=== PATIENT | female | born 1975 | race American Indian/Alaskan Native ===

== ENCOUNTER 2020-10-16 13:44 | Inpatient (IN) | payer OTHER ==
[2020-10-16] MEDS ORDERED: IPRATROPIUM/ALBUTEROL SULFATE 3 ML AMPUL.NEB IH ONE ×2 (14:01→14:12)
[2020-10-16] MEDS ORDERED: MAGNESIUM SULFATE 2 GM/50 ML BAG IV ONE (14:19)
[2020-10-16] MEDS ORDERED: methylPREDNISolone Sod Succinate 125 MG/2 ML INJ IV ONE (14:19)
--- NOTE | 2020-10-16 14:51 | XRay Report ---
XR chest 1V ap INDICATION / CLINICAL INFORMATION: Dyspnea. COMPARISON: None FINDINGS: SUPPORT DEVICES: None. HEART /PULMONARY VASCULATURE: No significant abnormality. LUNGS / PLEURA: No significant pulmonary or pleural abnormality. No pneumothorax. ADDITIONAL FINDINGS: No significant additional findings. IMPRESSION: 1. No acute findings. Signer Name: Saurav Cardenas MD Signed: 10/16/2020 2:47 PM Workstation Name: [id number]
--- NOTE | 2020-10-16 15:06 | Emergency Department Report ---
ED Shortness of Breath HPI - General Chief Complaint: Dyspnea/Respdistress Stated Complaint: ASTHMA Time Seen by Provider: 10/16/20 14:12 Source: patient Mode of arrival: Ambulatory Limitations: No Limitations - History of Present Illness Initial Comments: This is a 45-year old female who presents to the emergency department in respiratory distress. Charge nurse requested treatment for asthma which I authorized and immediately went to see the patient. Patient was found with audible wheezing. He had a limited ability to give a history. She was imm ediately started on multi DuoNeb aerosols. Her initial blood pressure was 172/109 on triage actually even higher on my encounter. She denied chest pain. She was able to tell me that she had been seen within the last week and given an albuterol inhaler prescription as well as an antibiotic. She stated that her elevated blood pressure was mentioned to her but she was not placed on medication yet. Patient was able to tell me she had no prior hospitalizations other than childbirth. She did state that she was on medicine for hypertension in the past but not recently as above. Patient stated that she did have some chills but no apparent fever. She states that she has been periodically sweating. She was noted to be mildly diaphoretic upon my initial encounter. She was not febrile. MD Complaint: shortness of breath, cough (States yellow sputum no hemoptysis), "asthma attack" -: week(s) Quality: other (States achy in general but no chest pain or back pain/abdominal pain) Consistency: constant (Dyspnea/wheezing is constant) Improves With: nothing Known History Of: asthma (Vague) Context: recent URI, other (No recent travel) Associated Symptoms: denies other symptoms, other (No leg pain. Patient stated a few weeks ago she felt a lump in her anterior thigh that went away) Treatments Prior to Arrival: other (Above indicated) - Related Data Home Oxygen Therapy: No Home Medications Medication Instructions Recorded Confirmed Last Taken Albuterol Sulfate [Proair 90 mcg IH PRN 10/16/20 10/16/20 Unknown Digihaler] Amoxicillin/Potassium Clav 1 each PO DAILY 10/16/20 10/16/20 Unknown [Augmentin 875-125 Tablet] Benzonatate [Tessalon Perles] 100 mg PO Q8HR PRN 10/16/20 10/16/20 Unknown Fluconazole [Diflucan TAB] 100 mg PO QDAY 10/16/20 10/16/20 Unknown Fluticasone [Flonase] 1 spray BN DAILY 10/16/20 10/16/20 Unknown Losartan/Hydrochlorothiazide 1 each PO DAILY 10/16/20 10/16/20 Unknown [Losartan-Hctz 50-12.5 mg Tab] Allergies Allergy/AdvReac Type Severity Reaction Status Date / Time No Known Allergies Allergy Unverified 10/16/20 13:49 ED Review of Systems ROS: Stated complaint: ASTHMA Other details as noted in HPI Comment: All other systems reviewed and negative (Limited secondary to respiratory distress) ED Past Medical Hx - Past Medical History Previous Medical History?: Yes Additional medical history: See HPI. Hypertension and I think previous prescription for bronchodilator. - Surgical History Past Surgical History?: Yes Additional Surgical History: TUBAL - Social History Smoking Status: Never Smoker Substance Use Type: Marijuana - Medications Home Medications: Home Medications Medication Instructions Recorded Confirmed Last Taken Type Albuterol Sulfate [Proair 90 mcg IH PRN 10/16/20 10/16/20 Unknown History Digihaler] Amoxicillin/Potassium Clav 1 each PO DAILY 10/16/20 10/16/20 Unknown History [Augmentin 875-125 Tablet] Benzonatate [Tessalon Perles] 100 mg PO Q8HR PRN 10/16/20 10/16/20 Unknown History Fluconazole [Diflucan TAB] 100 mg PO QDAY 10/16/20 10/16/20 Unknown History Fluticasone [Flonase] 1 spray BN DAILY 10/16/20 10/16/20 Unknown History Losartan/Hydrochlorothiazide 1 each PO DAILY 10/16/20 10/16/20 Unknown History [Losartan-Hctz 50-12.5 mg Tab] ED Physical Exam - General Limitations: Other (Respiratory distress) General appearance: obese, other (Sweaty) - Head Head exam: Present: atraumatic, normocephalic - Eye Eye exam: Absent: scleral icterus - ENT ENT exam: Present: mucous membranes moist - Neck Neck exam: Present: normal inspection. Absent: tenderness, meningismus - Respiratory Respiratory exam: Present: normal lung sounds bilaterally, accessory muscle use - Cardiovascular Cardiovascular Exam: Present: regular rate, normal rhythm. Absent: systolic murmur, diastolic murmur, rubs, gallop - GI/Abdominal GI/Abdominal exam: Absent: soft, distended, guarding - Extremities Exam Extremities exam: Present: other (Trace pretibial edema). Absent: calf tenderness - Back Exam Back exam: Present: normal inspection - Neurological Exam Neurological exam: Present: alert, oriented X3, CN II-XII intact (As tested). Absent: motor sensory deficit - Psychiatric Psychiatric exam: Present: normal affect, anxious - Skin Skin exam: Present: warm, dry, intact, normal color. Absent: rash ED Course Vital Signs 10/16/20 10/16/20 10/16/20 13:49 14:00 14:12 Temperature 98.3 F Pulse Rate 109 H Respiratory 38 H 24 Rate Blood Pressure 184/121 Blood Pressure [Left] O2 Sat by Pulse 100 100 99 Oximetry 10/16/20 10/16/20 10/16/20 14:14 14:15 14:31 Temperature Pulse Rate 95 H 86 Respiratory 22 24 Rate Blood Pressure 172/109 172/109 Blood Pressure 172/109 [Left] O2 Sat by Pulse 99 100 100 Oximetry 10/16/20 10/16/20 10/16/20 14:45 14:54 15:01 Temperature Pulse Rate 85 86 83 Respiratory 21 20 18 Rate Blood Pressure 172/109 164/100 164/100 Blood Pressure [Left] O2 Sat by Pulse 100 100 100 Oximetry 10/16/20 10/16/20 15:15 15:31 Temperature Pulse Rate 81 81 Respiratory 28 H 26 H Rate Blood Pressure 158/97 158/97 Blood Pressure [Left] O2 Sat by Pulse 100 100 Oximetry - Reevaluation(s) Reevaluation #1: Patient's blood pressure did improve but remained moderately hypertensive but not requiring acute reduction. She improved with nebulized therapy to some degree but remained quite anxious on reassessment. We placed the patient on BiPAP which alleviated her work of breathing. Solu-Medrol and mag sulfate as well as neb treatment did resolve the patient's wheezing. She remained stable on BiPAP with pulse oximetry essentially at 100%. 10/16/20 15:38 10/16/20 15:41 ABG is ordered and pending. Clinical status of the patient is improving. I have called [facility] for authorization of admission here. I would anticipate approval. Hospitalist will be notified. Patient had a D-dimer in the 400s. We are going to proceed with CT angiogram. Reevaluation #2: Discussed with Dr. Ly. Anticipated admission here. [facility] has not called back. 10/16/20 15:49 Reevaluation #3: Lactic acid level is 4. This will be repeated. I will give the patient antibiotic coverage. I certainly do not think she is septic. 10/16/20 15:52 ED Medical Decision Making - Lab Data Result diagrams: 10/16/20 14:56 10/16/20 14:56 Laboratory Results - last 24 hr 10/16/20 10/16/20 10/16/20 14:56 14:56 14:56 [place] % (Auto) 9.0 H Eos % (Auto) Grocery Clerk Checking Baso % (Auto) Grocery Clerk Checking [place] # (Auto) 0.4 Eos # (Auto) 0.4 Baso # (Auto) 0.0 Seg Neutrophils % 37.0 L Seg Neutrophils # 1.6 L PT 12.3 INR 0.93 APTT 23.9 L D-Dimer 494.04 H Lactic Acid 4.00 H* Laboratory Results - last 24 hr 10/16/20 10/16/20 10/16/20 14:42 14:56 14:56 WBC 4.3 L RBC 4.17 Hgb 13.3 Hct 39.1 MCV 94 MCH 32 MCHC 34 RDW 14.6 Plt Count 347 Lymph % (Auto) 43.2 H [place] % (Auto) 9.0 H Eos % (Auto) Grocery Clerk Checking Baso % (Auto) Grocery Clerk Checking Lymph # (Auto) 1.9 [place] # (Auto) 0.4 Eos # (Auto) 0.4 Baso # (Auto) 0.0 Seg Neutrophils % 37.0 L Seg Neutrophils # 1.6 L PT 12.3 INR 0.93 APTT 23.9 L D-Dimer 494.04 H Sodium Potassium Chloride Carbon Dioxide Anion Gap BUN Creatinine Estimated GFR BUN/Creatinine Ratio Glucose Lactic Acid Calcium Magnesium CK-MB (CK-2) 2.6 Troponin T Blood Type 10/16/20 10/16/20 10/16/20 14:56 14:56 14:56 WBC RBC Hgb Hct MCV MCH MCHC RDW Plt Count Lymph % (Auto) [place] % (Auto) Eos % (Auto) Baso % (Auto) Lymph # (Auto) [place] # (Auto) Eos # (Auto) Baso # (Auto) Seg Neutrophils % Seg Neutrophils # PT INR APTT D-Dimer Sodium 142 Potassium 3.5 L Chloride 103.2 Carbon Dioxide 21 L Anion Gap 21 BUN 8 Creatinine 0.9 Estimated GFR > 60 BUN/Creatinine Ratio 9 Glucose 97 Lactic Acid 4.00 H* Calcium 9.5 Magnesium 1.90 CK-MB (CK-2) Troponin T < 0.010 Blood Type O POSITIVE - EKG Data -: EKG Interpreted by Me EKG shows normal: sinus rhythm, axis, intervals, QRS complexes, ST-T waves Rate: normal - EKG Data Interpretation: no acute changes, other (Slightly delayed R wave progression probably secondary to habitus) - Radiology Data Radiology results: report reviewed (Chest x-ray no acute process), image reviewed Critical care attestation.: If time is entered above; I have spent that time in minutes in the direct care of this critically ill patient, excluding procedure time. ED Disposition Clinical Impression: Respiratory distress, Essential hypertension, Elevated d-dimer Status asthmaticus Qualifiers: Asthma severity: severe Asthma persistence: persistent Qualified Code(s): J45.52 - Severe persistent asthma with status asthmaticus Disposition: DC-09 OP ADMIT IP TO THIS HOSP Is pt being admited?: Yes Does the pt Need Aspirin: Yes Condition: Stable Instructions: Hypertension (ED) Time of Disposition: 15:44
[2020-10-16 15:23] LABS: INR 0.93 (0.87-1.13)
[2020-10-16 15:24] LABS: Partial Thromboplastin Time 23.9 Sec. (24.2-36.6)
[2020-10-16 15:32] LABS: Eosinophils # (Auto) 0.4 K/mm3 (0.0-0.4); Hematocrit 39.1 % (30.3-42.9); Hemoglobin 13.3 gm/dl (10.1-14.3); Lymphocytes # (Auto) 1.9 K/mm3 (1.2-5.4); Lymphocytes % (Auto) 43.2 % (13.4-35.0); Mean Corpuscular HGB Conc 34 % (30-34); Mean Corpuscular Volume 94 fl (79-97); Monocytes # (Auto) 0.4 K/mm3 (0.0-0.8); Platelet Count 347 K/mm3 (140-440); Red Blood Count 4.17 M/mm3 (3.65-5.03); Red Cell Distribution Width 14.6 % (13.2-15.2)
[2020-10-16] MEDS ORDERED: ASPIRIN 325 MG TAB PO ONE (15:44)
[2020-10-16 15:49] LABS: BUN/Creatinine Ratio 9; Blood Urea Nitrogen 8 mg/dL (7-17); Calcium 9.5 mg/dL (8.4-10.2); Hemolysis Index 0
[2020-10-16 15:51] LABS: Creatine Kinase MB 2.6 ng/mL (0.0-4.0)
[2020-10-16 16:06] LABS: Bilirubin,Urine NEG (Negative); Blood,Urine SM (Negative); Color,Urine Yellow (Yellow); Mucus,Urine 3+ /HPF; WBC,Urine < 1.0 /HPF (0.0-6.0)
[2020-10-16 16:11] LABS: Amphetamine Screen,Urine Negative; Benzodiazepines Screen,Urine Negative; Cocaine Screen,Urine Negative; Methadone Screen,Urine Negative; Opiate Screen,Urine Negative
[2020-10-16 16:16] LABS: HCG Qualitative,Urine Negative (Negative)
[2020-10-16] MEDS ORDERED: ALBUTEROL 2.5 MG/3 ML NEBU IH ONE (16:16)
[2020-10-16 16:28] LABS: Cannabinoid Screen,Urine Positive
[2020-10-16] MEDS ORDERED: ONDANSETRON 4 MG/2 ML INJ IV PRN (16:45)
[2020-10-16] MEDS ORDERED: ALBUTEROL 2.5 MG/3 ML NEBU IH PRN (16:45)
[2020-10-16] MEDS ORDERED: AZITHROMYCIN/NS 500 MG/250 ML 500 MG/250 ML BAG IV SCH (17:00)
--- NOTE | 2020-10-16 17:31 | History and Physical Report ---
History of Present Illness Date of admission: 10/16/20 16:45 Chief complaint: I cannot breathe History of present illness: 45 YO Female with Obesity Hypoventilation Syndrome, HTN, Mild Intermittent Asthma presents to ED for evaluation. Patient reports "I cannot breathe". Patient states that she has experienced shortness of breath over the past 5 days with acutely worsening symptoms over the past 1 day. Patient is unable to speak in complete sentences due to shortness of breath. Patient transported to [facility] via private vehicle for further care and evaluation of the aforementioned symp toms. The patient was seen and evaluated in the emergency department. All lab and imaging studies reviewed. Patient found to have a pulse oximetry of 88% on room air which is consistent with acute hypoxemic respiratory failure. The patient was sitting forward in bedtripoding, using accessory muscles to breathe. Patient was treated with submental oxygen without significant improvement in symptoms. The patient was subsequently placed on noninvasive positive pressure ventilation with mild improvement in symptoms. Patient found to have a lactic acidosis and was also initiated on coronavirus protocol in the emergency department. No further history obtainable due to patient symptoms. No prior admission for review. All medication listed at time of admission has been reconciled. Past History Past Medical History: hypertension, other (See HPI) Past Surgical History: Other (Tubal ligation) Social history: . denies: smoking, alcohol abuse Family history: diabetes, hypertension Medications and Allergies Allergies Allergy/AdvReac Type Severity Reaction Status Date / Time No Known Allergies Allergy Unverified 10/16/20 13:49 Home Medications Medication Instructions Recorded Confirmed Last Taken Type Albuterol Sulfate [Proair 90 mcg IH PRN 10/16/20 10/16/20 Unknown History Digihaler] Amoxicillin/Potassium Clav 1 each PO DAILY 10/16/20 10/16/20 Unknown History [Augmentin 875-125 Tablet] Benzonatate [Tessalon Perles] 100 mg PO Q8HR PRN 10/16/20 10/16/20 Unknown History Fluconazole [Diflucan TAB] 100 mg PO QDAY 10/16/20 10/16/20 Unknown History Fluticasone [Flonase] 1 spray BN DAILY 10/16/20 10/16/20 Unknown History Losartan/Hydrochlorothiazide 1 each PO DAILY 10/16/20 10/16/20 Unknown History [Losartan-Hctz 50-12.5 mg Tab] Active Meds: Active Medications Acetaminophen (Acetaminophen 325 Mg Tab) 650 mg PO Q4H PRN PRN Reason: Pain MILD(1-3)/Fever >100.5/[place] Albuterol (Albuterol 2.5 Mg/3 Ml Nebu) 2.5 mg IH Q4H PRN PRN Reason: Shortness Of Breath Ascorbic Acid (Ascorbic Acid 500 Mg Tab) 500 mg PO BID [facility] Benzonatate (Benzonatate 100 Mg Cap) 100 mg PO Q8H PRN PRN Reason: Cough Cholecalciferol (Cholecalciferol (Vit D3) 1000 Unit (25 Mcg) Tab) 1,000 unit PO DAILY [facility] Famotidine (Famotidine 10 Mg Tab) 10 mg PO BID [facility] Heparin Sodium (Porcine) (Heparin 5,000 Unit/1 Ml Vial) 5,000 unit SUB-Q Q12HR [facility] Hydrochlorothiazide (Hydrochlorothiazide 12.5 Mg Cap) 12.5 mg PO QDAY [facility] Ceftriaxone Sodium (Rocephin/Ns 2 Gm/100 Ml) 2 gm in 100 mls @ 200 mls/hr IV Q24H [facility]; Protocol Azithromycin (Zithromax/Ns) 500 mg in 250 mls @ 250 mls/hr IV Q24H [facility]; Protocol Losartan Potassium (Losartan 50 Mg Tab) 50 mg PO QDAY [facility] Methylprednisolone Sodium Succinate (Methylprednisolone Sod Succinate 40 Mg/1 Ml Inj) 40 mg IV Q8HR [facility] Ondansetron HCl (Ondansetron 4 Mg/2 Ml Inj) 4 mg IV Q8H PRN PRN Reason: Nausea And Vomiting Sodium Chloride (Sodium Chloride 0.9% 10 Ml Flush Syringe) 10 ml IV BID [facility] Sodium Chloride (Sodium Chloride 0.9% 10 Ml Flush Syringe) 10 ml IV PRN PRN PRN Reason: LINE FLUSH Review of Systems ROS unobtainable: due to mental status Exam - Constitutional Vitals: Temp Pulse Resp BP Pulse Ox 98.3 F 92 H 22 151/111 100 10/16/20 13:49 10/16/20 16:04 10/16/20 16:04 10/16/20 16:04 10/16/20 16:04 General appearance: Present: mild distress - EENT Eyes: Present: PERRL ENT: hearing intact, clear oral mucosa - Neck Neck: Present: supple, normal ROM - Respiratory Respiratory effort: labored Respiratory: bilateral: diminished, rhonchi - Cardiovascular Heart Sounds: Present: S1 & S2. Absent: rub, click - Extremities Extremities: pulses symmetrical, No edema Peripheral Pulses: within normal limits - Abdominal General gastrointestinal: Present: soft, non-tender, non-distended, normal bowel sounds Female genitourinary: Present: normal - Integumentary Integumentary: Present: clear, warm, dry - Musculoskeletal Musculoskeletal: gait normal, strength equal bilaterally - Psychiatric Psychiatric: appropriate mood/affect, intact judgment & insight - Neurologic Neurologic: CNII-XII intact, moves all extremities HEART Score - HEART Score Troponin: Troponin T < 0.010 ng/mL (0.00-0.029) 10/16/20 14:56 Results - Labs CBC & Chem 7: 10/16/20 14:56 10/16/20 14:56 Labs: Abnormal lab results 10/16/20 10/16/20 10/16/20 Range/Units 14:42 14:56 14:56 WBC 4.3 L (4.5-11.0) K/mm3 Lymph % (Auto) 43.2 H (13.4-35.0) % [place] % (Auto) 9.0 H (0.0-7.3) % Seg Neutrophils % 37.0 L (40.0-70.0) % Seg Neutrophils # 1.6 L (1.8-7.7) K/mm3 APTT 23.9 L (24.2-36.6) Sec. D-Dimer 494.04 H (0-234) ng/mlDDU Potassium (3.6-5.0) mmol/L Carbon Dioxide (22-30) mmol/L Lactic Acid (0.7-2.0) mmol/L Total Creatine Kinase 386 H (30-135) units/L Urine pH (5.0-7.0) 10/16/20 10/16/20 10/16/20 Range/Units 14:56 14:56 15:41 WBC (4.5-11.0) K/mm3 Lymph % (Auto) (13.4-35.0) % [place] % (Auto) (0.0-7.3) % Seg Neutrophils % (40.0-70.0) % Seg Neutrophils # (1.8-7.7) K/mm3 APTT (24.2-36.6) Sec. D-Dimer (0-234) ng/mlDDU Potassium 3.5 L (3.6-5.0) mmol/L Carbon Dioxide 21 L (22-30) mmol/L Lactic Acid 4.00 H* (0.7-2.0) mmol/L Total Creatine Kinase (30-135) units/L Urine pH 8.0 H (5.0-7.0) 10/16/20 Range/Units 16:08 WBC (4.5-11.0) K/mm3 Lymph % (Auto) (13.4-35.0) % [place] % (Auto) (0.0-7.3) % Seg Neutrophils % (40.0-70.0) % Seg Neutrophils # (1.8-7.7) K/mm3 APTT (24.2-36.6) Sec. D-Dimer (0-234) ng/mlDDU Potassium (3.6-5.0) mmol/L Carbon Dioxide (22-30) mmol/L Lactic Acid 2.20 H* (0.7-2.0) mmol/L Total Creatine Kinase (30-135) units/L Urine pH (5.0-7.0) Assessment and Plan - Patient Problems (1) Acute hypoxemic respiratory failure Current Visit: Yes Status: Acute Plan to address problem: Chest x-ray, supplemental oxygen, pulse oximetry, arterial blood gas, noninvasive positive pressure ventilation (2) Lactic acidosis Current Visit: Yes Status: Acute Plan to address problem: Supportive care, BMP, repeat BMP in a.m. (3) Obesity hypoventilation syndrome Current Visit: Yes Status: Acute Plan to address problem: Supplemental oxygen, pulse oximetry, balanced diet, increase physical activity at discharge, outpatient pulmonary follow-up for sleep study (4) Accelerated hypertension Current Visit: Yes Status: Acute Plan to address problem: Monitor blood pressure every shift, continue medical management resume prehospital antihypertensive therapy. (5) Suspected 2019 novel coronavirus infection Current Visit: Yes Status: Acute Plan to address problem: Coronavirus protocol: Contact precautions, isolation precautions, coronavirus PCR ordered and pending at time of admission, prone positioning while in bed, IV antibiotic therapy, IV steroid therapy, vitamin C, vitamin D, zinc, prophylactic anticoagulation (6) DVT prophylaxis Current Visit: Yes Status: Acute Plan to address problem: SCD bilateral lower extremities while in bed, prophylactic anticoagulation
[2020-10-16 17:38] LABS: ABG Base Excess -1.8 mmol/L (-2.0-3.0); ABG HCO3 19.7 mmol/L (20.0-26.0); ABG Methemoglobin 0.5 % (0.0-1.5); ABG Oxygen Saturation 99.2 % (95.0-99.0); ABG PCO2 25.6 mm Hg; ABG PH 7.505 pH Units (7.350-7.450); ABG PO2 184.8 mm Hg (80.0-90.0)
[2020-10-16] MEDS: cefTRIAXone/NS 2 GM/100 ML 2 GM/100 ML BAG IV SCH (18:34)
[2020-10-16] MEDS: methylPREDNISolone Sod Succinate 40 MG/1 ML INJ IV SCH (23:02)
[2020-10-16] MEDS: BENZONATATE 100 MG CAP PO PRN (23:02)
[2020-10-16] MEDS: ASCORBIC ACID 500 MG TAB PO SCH (23:02)
[2020-10-16] MEDS: HEPARIN 5,000 UNIT/1 ML VIAL SUB-Q SCH (23:03)
[2020-10-16] MEDS: FAMOTIDINE 10 MG TAB PO SCH (23:03)
[2020-10-17] MEDS: ACETAMINOPHEN 325 MG TAB PO PRN (01:26)
[2020-10-17] MEDS ORDERED: IBUPROFEN 600 MG TAB PO ONE (04:53)
[2020-10-17] MEDS: methylPREDNISolone Sod Succinate 40 MG/1 ML INJ IV SCH ×3 (05:29→21:41)
[2020-10-17] MEDS: hydrALAZINE 20 MG/1 ML INJ IV PRN (05:32)
[2020-10-17] MEDS ORDERED: LORazepam 2 MG/ML VIAL IV NR (06:40)
[2020-10-17 07:36] LABS: Basophils % (Auto) 0.2 % (0.0-1.8); Hemoglobin 13.3 gm/dl (10.1-14.3); Lymphocytes # (Auto) 0.7 K/mm3 (1.2-5.4); Lymphocytes % (Auto) 12.1 % (13.4-35.0); Monocytes # (Auto) 0.1 K/mm3 (0.0-0.8); Monocytes % (Auto) 1.9 % (0.0-7.3)
[2020-10-17 07:47] LABS: Mean Corpuscular HGB Conc 35 % (30-34); Mean Corpuscular Volume 94 fl (79-97); Platelet Count 341 K/mm3 (140-440); Red Blood Count 4.15 M/mm3 (3.65-5.03); Red Cell Distribution Width 14.9 % (13.2-15.2)
[2020-10-17 07:56] LABS: Blood Urea Nitrogen 11 mg/dL (7-17); Calcium 9.2 mg/dL (8.4-10.2); Hemolysis Index 40
[2020-10-17 08:22] LABS: BUN/Creatinine Ratio 16
--- NOTE | 2020-10-17 09:48 | Electrocardiograph Report ---
[facility] Test Date: 2020-10-16 Test Time: 14:21:41 Pat Name: YONIS APONTE Department: Room: A356 Gender: F Master Automotive Technician: krystle : 1975 Requested By: TIARA HUGGINS Order Number: [id number] Reading MD: Ronnie Ramirez Measurements Intervals [place] Rate: 96 P: 63 [place]: 130 QRS: 32 QRSD: 82 T: 2 QT: 358 QTc: 456 Interpretive Statements Sinus rhythm No previous ECG available for comparison Electronically Signed On 10-17-2020 6:48:00 PDT by Ronnie Ramirez
[2020-10-17] MEDS: HEPARIN 5,000 UNIT/1 ML VIAL SUB-Q SCH ×2 (09:56→21:40)
[2020-10-17] MEDS: hydroCHLOROthiazide 12.5 MG CAP PO SCH (09:58)
[2020-10-17] MEDS: FAMOTIDINE 10 MG TAB PO SCH ×2 (09:58→21:41)
[2020-10-17] MEDS: LOSARTAN 50 MG TAB PO SCH (09:58)
[2020-10-17] MEDS: AZITHROMYCIN 250 MG TAB PO SCH (09:58)
[2020-10-17] MEDS: ASCORBIC ACID 500 MG TAB PO SCH ×2 (09:58→21:40)
[2020-10-17] MEDS: CHOLECALCIFEROL (VIT D3) 1000 UNIT (25 mcg) TAB PO SCH (09:58)
[2020-10-17] MEDS ORDERED: NON-FORMULARY EACH (Losartan/Hydrochlorothiazide [Losartan-Hctz 50-12.5 Mg Tab] 1 EACH Tab PO SCH (10:00)
--- NOTE | 2020-10-17 13:01 | Consultation ---
History of Present Illness Consult date: 10/17/20 Requesting physician: JAH CONNOLLY Reason for consult: asthma, other (PUI COVID-19) History of present illness: PULMONARY/CCM CONSULT NOTE (Full dictation # [id number]) Please see dictated notes for full details Past History Past Medical History: hypertension, other (See HPI) Past Surgical History: Other (Tubal ligation) Social history: . denies: smoking, alcohol abuse Family history: diabetes, hypertension Medications and Allergies Allergies Allergy/AdvReac Type Severity Reaction Status Date / Time No Known Allergies Allergy Unverified 10/16/20 13:49 Home Medications Medication Instructions Recorded Confirmed Last Taken Type Albuterol Sulfate [Proair 90 mcg IH PRN 10/16/20 10/16/20 Unknown History Digihaler] Benzonatate [Tessalon Perles] 100 mg PO Q8HR PRN 10/16/20 10/16/20 Unknown History Fluticasone [Flonase] 1 spray BN DAILY 10/16/20 10/16/20 Unknown History Albuterol Mdi (or & Nicu Only) 2 puff IH QID PRN #8.5 gram 10/18/20 Unknown Rx [ProAir HFA Inhaler] Budesonide/Formoterol Fumarate 10.2 gm IH BID #1 hfa.aer.ad 10/18/20 Unknown Rx [Symbicort 160-4.5 Mcg Inhaler] Losartan/Hydrochlorothiazide 1 each PO DAILY #30 10/18/20 Unknown Rx [Losartan-Hctz 50-12.5 mg Tab] Prednisone [predniSONE 10 mg 10 mg PO .TAPER #1 tab.ds.pk 10/18/20 Unknown Rx (6-Day Pack, 21 Tabs)] cloNIDine-TTS PATCH [Catapres-Tts 0.2 mg TD QWEEK #4 patch 10/18/20 Unknown Rx 0.2mg Patch] guaiFENesin DM [Guaifenesin Dm 10 ml PO Q6HR PRN #250 ml 10/18/20 Unknown Rx Syrup] Active Meds: Active Medications Acetaminophen (Acetaminophen 325 Mg Tab) 650 mg PO Q4H PRN PRN Reason: Pain MILD(1-3)/Fever >100.5/[place] Last Admin: 10/17/20 01:26 Dose: 650 mg Documented by: Albuterol (Albuterol 2.5 Mg/3 Ml Nebu) 2.5 mg IH Q4H PRN PRN Reason: Shortness Of Breath Last Admin: 10/17/20 00:43 Dose: 2.5 mg Documented by: Amlodipine Besylate (Amlodipine 10 Mg Tab) 10 mg PO QDAY [facility] Ascorbic Acid (Ascorbic Acid 500 Mg Tab) 500 mg PO BID [facility] Last Admin: 10/17/20 09:58 Dose: 500 mg Documented by: Azithromycin (Azithromycin 250 Mg Tab) 500 mg PO QDAY [facility]; Protocol Stop: 10/20/20 10:01 Last Admin: 10/17/20 09:58 Dose: 500 mg Documented by: Benzonatate (Benzonatate 100 Mg Cap) 100 mg PO Q8H PRN PRN Reason: Cough Last Admin: 10/16/20 23:02 Dose: 100 mg Documented by: Cholecalciferol (Cholecalciferol (Vit D3) 1000 Unit (25 Mcg) Tab) 1,000 unit PO DAILY [facility] Last Admin: 10/17/20 09:58 Dose: 1,000 unit Documented by: Famotidine (Famotidine 10 Mg Tab) 10 mg PO BID [facility] Last Admin: 10/17/20 09:58 Dose: 10 mg Documented by: Heparin Sodium (Porcine) (Heparin 5,000 Unit/1 Ml Vial) 5,000 unit SUB-Q Q12HR [facility] Last Admin: 10/17/20 09:56 Dose: 5,000 unit Documented by: Hydralazine HCl (Hydralazine 20 Mg/1 Ml Inj) 10 mg IV Q4H PRN PRN Reason: Hypertension Last Admin: 10/17/20 05:32 Dose: 10 mg Documented by: Hydrochlorothiazide (Hydrochlorothiazide 12.5 Mg Cap) 12.5 mg PO QDAY [facility] Last Admin: 10/17/20 09:58 Dose: 12.5 mg Documented by: Ceftriaxone Sodium (Rocephin/Ns 2 Gm/100 Ml) 2 gm in 100 mls @ 200 mls/hr IV Q24H [facility]; Protocol Last Admin: 10/16/20 18:34 Dose: 200 mls/hr Documented by: Losartan Potassium (Losartan 50 Mg Tab) 50 mg PO QDAY [facility] Last Admin: 10/17/20 09:58 Dose: 50 mg Documented by: Methylprednisolone Sodium Succinate (Methylprednisolone Sod Succinate 40 Mg/1 Ml Inj) 40 mg IV Q8HR [facility] Last Admin: 10/17/20 05:29 Dose: 40 mg Documented by: Ondansetron HCl (Ondansetron 4 Mg/2 Ml Inj) 4 mg IV Q8H PRN PRN Reason: Nausea And Vomiting Sodium Chloride (Sodium Chloride 0.9% 10 Ml Flush Syringe) 10 ml IV BID [facility] Last Admin: 10/17/20 09:59 Dose: 10 ml Documented by: Sodium Chloride (Sodium Chloride 0.9% 10 Ml Flush Syringe) 10 ml IV PRN PRN PRN Reason: LINE FLUSH Physical Examination Vital signs: Vital Signs Temp Pulse Resp BP Pulse Ox 98.3 F 109 H 38 H 184/121 100 10/16/20 13:49 10/16/20 13:49 10/16/20 13:49 10/16/20 13:49 10/16/20 13:49 Results - Laboratory Findings CBC and BMP: 10/17/20 06:33 10/17/20 06:33 ABG ABG pH 7.505 pH Units (7.350-7.450) H 10/16/20 16:07 ABG pCO2 25.6 mm Hg 10/16/20 16:07 ABG pO2 184.8 mm Hg (80.0-90.0) H 10/16/20 16:07 ABG O2 Saturation 99.2 % (95.0-99.0) H 10/16/20 16:07 PT/INR, D-dimer PT 12.3 Sec. (12.2-14.9) 10/16/20 14:56 INR 0.93 (0.87-1.13) 10/16/20 14:56 D-Dimer 494.04 ng/mlDDU (0-234) H 10/16/20 14:56 Abnormal lab findings: Abnormal Labs 10/16/20 10/16/20 10/16/20 14:42 14:56 14:56 WBC 4.3 L MCHC Lymph % (Auto) 43.2 H [place] % (Auto) 9.0 H Lymph # (Auto) Seg Neutrophils % 37.0 L Seg Neutrophils # 1.6 L APTT 23.9 L D-Dimer 494.04 H ABG pH ABG pO2 ABG HCO3 ABG O2 Saturation Potassium Carbon Dioxide Glucose POC Glucose Lactic Acid Total Creatine Kinase 386 H Urine pH 10/16/20 10/16/20 10/16/20 14:56 14:56 15:41 WBC MCHC Lymph % (Auto) [place] % (Auto) Lymph # (Auto) Seg Neutrophils % Seg Neutrophils # APTT D-Dimer ABG pH ABG pO2 ABG HCO3 ABG O2 Saturation Potassium 3.5 L Carbon Dioxide 21 L Glucose POC Glucose Lactic Acid 4.00 H* Total Creatine Kinase Urine pH 8.0 H 10/16/20 10/16/20 10/17/20 16:07 16:08 06:33 WBC MCHC 35 H Lymph % (Auto) 12.1 L [place] % (Auto) Lymph # (Auto) 0.7 L Seg Neutrophils % 85.8 H Seg Neutrophils # APTT D-Dimer ABG pH 7.505 H ABG pO2 184.8 H ABG HCO3 19.7 L ABG O2 Saturation 99.2 H Potassium Carbon Dioxide Glucose POC Glucose Lactic Acid 2.20 H* Total Creatine Kinase Urine pH 10/17/20 10/17/20 10/17/20 06:33 07:54 11:41 WBC MCHC Lymph % (Auto) [place] % (Auto) Lymph # (Auto) Seg Neutrophils % Seg Neutrophils # APTT D-Dimer ABG pH ABG pO2 ABG HCO3 ABG O2 Saturation Potassium Carbon Dioxide Glucose 119 H POC Glucose 126 H 109 H Lactic Acid Total Creatine Kinase Urine pH
[2020-10-17] MEDS: amLODIPine 10 MG TAB PO SCH (15:39)
--- NOTE | 2020-10-17 16:39 | Progress Note ---
Assessment and Plan Assessment and plan: 45 YO Female with Obesity Hypoventilation Syndrome, HTN, Mild Intermittent Asthma presents to ED for evaluation. Patient reports "I cannot breathe". Patient states that she has experienced shortness of breath over the past 5 days with acutely worsening symptoms over the past 1 day. Patient is unable to speak in complete sentences due to shortness of breath. Patient transported to [facility] via private vehicle for further care and evaluation of the aforementioned symptoms. The patient was seen and evaluated in the emergency department. All lab and imaging studies reviewed. Patient found to have a pulse oximetry of 88% on room air which is consistent with acute hypoxemic respiratory failure. The patient was sitting forward in bedtripoding, using accessory muscles to breathe. Patient was treated with submental oxygen without significant improvement in symptoms. The patient was subsequently placed on noninvasive positive pressure ventilation with mild improvement in symptoms. Patient found to have a lactic acidosis and was also initiated on coronavirus protocol in the emergency department. No further history obtainable due to patient symptoms. No prior admission for review. All medication listed at time of admission has been reconciled. 10/17: Patient still noted with hypertensive urgency requiring further management. Will start patient on clonidine patch as she is adverse to p.o. intake. She still has some wheezing we will continue the steroid therapy at this time. We will likely discharge her on inhaled steroids and she states that she does not trust that she will take the p.o. steroids are doing Medrol Dosepak may not be a bad idea to add to her regimen and encouraged her to take. Counseling provided to her. Was still awaiting her Covid testing results. Plan has been discussed with her in detail she verbalized understanding counseling against marijuana use has been good for 15 minutes she verbalized understanding (1) Acute hypoxemic respiratory failure Current Visit: Yes Status: Acute Plan to address problem: Chest x-ray, supplemental oxygen, pulse oximetry, arterial blood gas, noninvasive positive pressure ventilation (2) Lactic acidosis Current Visit: Yes Status: Acute Plan to address problem: Supportive care, BMP, repeat BMP in a.m. (3) Obesity hypoventilation syndrome Current Visit: Yes Status: Acute Plan to address problem: Supplemental oxygen, pulse oximetry, balanced diet, increase physical activity at discharge, outpatient pulmonary follow-up for sleep study (4) Accelerated hypertension Current Visit: Yes Status: Acute Plan to address problem: Monitor blood pressure every shift, continue medical management resume prehospital antihypertensive therapy. (5) Suspected 2019 novel coronavirus infection Current Visit: Yes Status: Acute Plan to address problem: Coronavirus protocol: Contact precautions, isolation precautions, coronavirus PCR ordered and pending at time of admission, prone positioning while in bed, IV antibiotic therapy, IV steroid therapy, vitamin C, vitamin D, zinc, prophylactic anticoagulation (6) DVT prophylaxis Current Visit: Yes Status: Acute Plan to address problem: SCD bilateral lower extremities while in bed, prophylactic anticoagulation History Interval history: Patient seen and examined today, still with mild cough and wheezing, states that Marijuana makes her calm. She further tells me that she has history of psych illness is a long time ago notes a result he feels. She will take them regardless here in the hospital but wishes on her medications can be liquid Hospitalist Physical - Physical exam Narrative exam: VITAL SIGNS: Reviewed. GENERAL: The patient appears normally developed, Vital signs as documented. HEAD: No signs of head trauma. EYES: Pupils are equal. Extraocular motions intact. EARS: Hearing grossly intact. MOUTH: Oropharynx is normal. NECK: No adenopathy, no JVD. CHEST: Chest with mild wheezing breath sounds bilaterally. No rales, or rhonchi. CARDIAC: Regular rate and rhythm. S1 and S2, without murmurs, gallops, or rubs. VASCULAR: No Edema. Peripheral pulses normal and equal in all extremities. ABDOMEN: Soft, non tender and non distended. No rebound or guarding, and no masses palpated. Bowel Sounds normal. MUSCULOSKELETAL: Good range of motion of all major joints. Extremities without clubbing, cyanosis or edema. NEUROLOGIC EXAM: Alert and oriented x 3 No focal sensory or strength deficits. Speech normal. Follows commands. PSYCHIATRIC: Mood normal. SKIN: detail exam as documented in skin assessment - Constitutional Vitals: Temp Pulse Resp BP Pulse Ox 99.2 F 97 H 18 157/112 100 10/17/20 15:44 10/17/20 15:44 10/17/20 15:44 10/17/20 15:40 10/17/20 15:44 General appearance: Present: mild distress HEART Score - HEART Score Troponin: Troponin T < 0.010 ng/mL (0.00-0.029) 10/16/20 14:56 Results - Labs CBC & Chem 7: 10/17/20 06:33 10/17/20 06:33 Labs: Laboratory Last Values WBC 6.0 K/mm3 (4.5-11.0) 10/17/20 06:33 RBC 4.15 M/mm3 (3.65-5.03) 10/17/20 06:33 Hgb 13.3 gm/dl (10.1-14.3) 10/17/20 06:33 Hct 39.0 % (30.3-42.9) 10/17/20 06:33 MCV 94 fl (79-97) 10/17/20 06:33 MCH 32 pg (28-32) 10/17/20 06:33 MCHC 35 % (30-34) H 10/17/20 06:33 RDW 14.9 % (13.2-15.2) 10/17/20 06:33 Plt Count 341 K/mm3 (140-440) 10/17/20 06:33 Lymph % (Auto) 12.1 % (13.4-35.0) L 10/17/20 06:33 [place] % (Auto) 1.9 % (0.0-7.3) 10/17/20 06:33 Eos % (Auto) 0.0 % (0.0-4.3) 10/17/20 06:33 Baso % (Auto) 0.2 % (0.0-1.8) 10/17/20 06:33 Lymph # (Auto) 0.7 K/mm3 (1.2-5.4) L 10/17/20 06:33 [place] # (Auto) 0.1 K/mm3 (0.0-0.8) 10/17/20 06:33 Eos # (Auto) 0.0 K/mm3 (0.0-0.4) 10/17/20 06:33 Baso # (Auto) 0.0 K/mm3 (0.0-0.1) 10/17/20 06:33 Seg Neutrophils % 85.8 % (40.0-70.0) H 10/17/20 06:33 Seg Neutrophils # 5.1 K/mm3 (1.8-7.7) 10/17/20 06:33 PT 12.3 Sec. (12.2-14.9) 10/16/20 14:56 INR 0.93 (0.87-1.13) 10/16/20 14:56 APTT 23.9 Sec. (24.2-36.6) L 10/16/20 14:56 D-Dimer 494.04 ng/mlDDU (0-234) H 10/16/20 14:56 ABG pH 7.505 pH Units (7.350-7.450) H 10/16/20 16:07 ABG pCO2 25.6 mm Hg 10/16/20 16:07 ABG pO2 184.8 mm Hg (80.0-90.0) H 10/16/20 16:07 ABG HCO3 19.7 mmol/L (20.0-26.0) L 10/16/20 16:07 ABG O2 Saturation 99.2 % (95.0-99.0) H 10/16/20 16:07 ABG O2 Content 19.2 (0.0-44) 10/16/20 16:07 ABG Base Excess -1.8 mmol/L (-2.0-3.0) 10/16/20 16:07 ABG Hemoglobin 13.8 gm/dl (12.0-16.0) 10/16/20 16:07 ABG Carboxyhemoglobin 1.3 % (0.0-5.0) 10/16/20 16:07 ABG Methemoglobin 0.5 % (0.0-1.5) 10/16/20 16:07 Oxyhemoglobin 97.5 % (95.0-99.0) 10/16/20 16:07 FiO2 35 % 10/16/20 16:07 Sodium 139 mmol/L (137-145) 10/17/20 06:33 Potassium 3.9 mmol/L (3.6-5.0) 10/17/20 06:33 Chloride 103.6 mmol/L (98-107) 10/17/20 06:33 Carbon Dioxide 22 mmol/L (22-30) 10/17/20 06:33 Anion Gap 17 mmol/L 10/17/20 06:33 BUN 11 mg/dL (7-17) 10/17/20 06:33 Creatinine 0.7 mg/dL (0.6-1.2) 10/17/20 06:33 Estimated GFR > 60 ml/min 10/17/20 06:33 BUN/Creatinine Ratio 16 % 10/17/20 06:33 Glucose 119 mg/dL (65-100) H 10/17/20 06:33 POC Glucose 109 mg/dL (70-105) H 10/17/20 11:41 Lactic Acid 1.20 mmol/L (0.7-2.0) 10/16/20 20:46 Calcium 9.2 mg/dL (8.4-10.2) 10/17/20 06:33 Magnesium 1.90 mg/dL (1.7-2.3) 10/16/20 14:56 Total Creatine Kinase 386 units/L (30-135) H 10/16/20 14:42 CK-MB (CK-2) 2.6 ng/mL (0.0-4.0) 10/16/20 14:42 CK-MB (CK-2) Rel Index 0.6 (0-4) 10/16/20 14:42 Troponin T < 0.010 ng/mL (0.00-0.029) 10/16/20 14:56 Urine Color Yellow (Yellow) 10/16/20 15:41 Urine Turbidity Slightly-cloudy (Clear) 10/16/20 15:41 Urine pH 8.0 (5.0-7.0) H 10/16/20 15:41 Ur Specific [place] 1.019 (1.003-1.030) 10/16/20 15:41 Urine Protein 30 mg/dl mg/dL (Negative) 10/16/20 15:41 Urine Glucose (UA) Neg mg/dL (Negative) 10/16/20 15:41 Urine Ketones Tr mg/dL (Negative) 10/16/20 15:41 Urine Blood Sm (Negative) 10/16/20 15:41 Urine Nitrite Neg (Negative) 10/16/20 15:41 Urine Bilirubin Neg (Negative) 10/16/20 15:41 Urine Urobilinogen 2.0 mg/dL (<2.0) 10/16/20 15:41 Ur Leukocyte Esterase Neg (Negative) 10/16/20 15:41 Urine WBC (Auto) < 1.0 /HPF (0.0-6.0) 10/16/20 15:41 Urine RBC (Auto) 4.0 /HPF (0.0-6.0) 10/16/20 15:41 U Epithel Cells (Auto) 1.0 /HPF (0-13.0) 10/16/20 15:41 Urine Mucus 3+ /HPF 10/16/20 15:41 Urine HCG, Qual Negative (Negative) 10/16/20 15:41 Urine Opiates Screen Negative 10/16/20 15:41 Urine Methadone Screen Negative 10/16/20 15:41 Ur Barbiturates Screen Negative 10/16/20 15:41 Ur Phencyclidine Scrn Negative 10/16/20 15:41 Ur Amphetamines Screen Negative 10/16/20 15:41 U Benzodiazepines Scrn Negative 10/16/20 15:41 Urine Cocaine Screen Negative 10/16/20 15:41 U Marijuana (THC) Screen Positive 10/16/20 15:41 Drugs of Abuse Note Disclamer 10/16/20 15:41 Blood Type O POSITIVE 10/16/20 14:56 Antibody Screen Negative 10/16/20 14:56 Microbiology: Microbiology 10/16/20 14:46 Peripheral/Venous Blood Culture - Preliminary NO GROWTH AFTER 24 HOURS 10/17/20 12:00 Peripheral/Venous Blood Culture - Preliminary Culture in Progress Pettit/IV: Voiding Method Toilet Active Medications - Current Medications Current Medications: Generic Name Dose Route Start Last Admin Trade Name Freq PRN Reason Stop Dose Admin Acetaminophen 650 mg 10/16/20 16:45 10/17/20 01:26 Acetaminophen 325 Mg Tab PO 650 mg Q4H PRN Administration Pain MILD(1-3)/Fever >100.5/CAMARA Albuterol 2.5 mg 10/16/20 16:45 10/17/20 00:43 Albuterol 2.5 Mg/3 Ml Nebu IH 2.5 mg Q4H PRN Administration Shortness Of Breath Amlodipine Besylate 10 mg 10/17/20 13:00 10/17/20 15:39 Amlodipine 10 Mg Tab PO 10 mg QDAY VEGA Administration Ascorbic Acid 500 mg 10/16/20 22:00 10/17/20 09:58 Ascorbic Acid 500 Mg Tab PO 500 mg BID VEGA Administration Azithromycin 500 mg 10/17/20 10:00 10/17/20 09:58 Azithromycin 250 Mg Tab PO 10/20/20 10:01 500 mg QDAY VEGA Administration Protocol Benzonatate 100 mg 10/16/20 16:51 10/16/20 23:02 Benzonatate 100 Mg Cap PO 100 mg Q8H PRN Administration Cough Cholecalciferol 1,000 unit 10/17/20 10:00 10/17/20 09:58 Cholecalciferol (Vit D3) 1000 Unit (25 Mcg) Tab PO 1,000 unit DAILY VEGA Administration Famotidine 10 mg 10/16/20 22:00 10/17/20 09:58 Famotidine 10 Mg Tab PO 10 mg BID VEGA Administration Heparin Sodium (Porcine) 5,000 unit 10/16/20 22:00 10/17/20 09:56 Heparin 5,000 Unit/1 Ml Vial SUB-Q 5,000 unit Q12HR VEGA Administration Hydralazine HCl 10 mg 10/17/20 04:25 10/17/20 05:32 Hydralazine 20 Mg/1 Ml Inj IV 10 mg Q4H PRN Administration Hypertension Hydrochlorothiazide 12.5 mg 10/17/20 10:00 10/17/20 09:58 Hydrochlorothiazide 12.5 Mg Cap PO 12.5 mg QDAY VEGA Administration Ceftriaxone Sodium 2 gm in 100 mls @ 200 mls/hr 10/16/20 17:00 10/16/20 18:34 Rocephin/Ns 2 Gm/100 Ml IV 200 mls/hr Q24H VEGA Administration Protocol Losartan Potassium 50 mg 10/17/20 10:00 10/17/20 09:58 Losartan 50 Mg Tab PO 50 mg QDAY VEGA Administration Methylprednisolone Sodium Succinate 40 mg 10/16/20 22:00 10/17/20 15:39 Methylprednisolone Sod Succinate 40 Mg/1 Ml Inj IV 40 mg Q8HR VEGA Administration Ondansetron HCl 4 mg 10/16/20 16:45 Ondansetron 4 Mg/2 Ml Inj IV Q8H PRN Nausea And Vomiting Sodium Chloride 10 ml 10/16/20 22:00 10/17/20 09:59 Sodium Chloride 0.9% 10 Ml Flush Syringe IV 10 ml BID VEGA Administration Sodium Chloride 10 ml 10/16/20 16:45 Sodium Chloride 0.9% 10 Ml Flush Syringe IV PRN PRN LINE FLUSH
--- NOTE | 2020-10-17 16:41 | Cat Scan Report ---
CTA CHEST WITH CONTRAST INDICATION / CLINICAL INFORMATION: MAIN. Elevated d-dimer and respiratory distress on BiPAP. TECHNIQUE: Axial CT images were obtained through the chest after injection of IV contrast. 3 plane MIP and/or 3D reconstructions were produced. All CT scans at this location are performed using CT dose reduction f or ALARA by means of automated exposure control. COMPARISON: Chest radiograph 10/16/2020. FINDINGS: PULMONARY ARTERIES: No pulmonary emboli. Mild turbulent filling artifact noted of the subsegmental br anches bilateral lower lobes. THORACIC AORTA: No significant abnormality. HEART: No significant abnormality. CORONARY ARTERIES: No significant calcification. MEDIASTINUM / REJI: No significant abnormality. PLEURA: No pleural effusion. No pneumothorax. LUNGS: No acute air space or interstitial disease. 7 mm noncalcified soft tissue density nodule right lung base (series 2 image 50). ADDITIONAL FINDINGS: Moderate hiatal hernia. UPPER ABDOMEN: No acute findings. SKELETAL STRUCTURES: No significant osseous abnormality. No aggressive osseous lesions. IMPRESSION: 1. No CT evidence for pulmonary embolism. 2. No acute findings. 3. Incidental 7 mm noncalcified soft tissue density pulmonary nodule right lung base. Follow-up is re commended below. INCIDENTAL PULMONARY NODULE RECOMMENDATION RECOMMENDATION: Note These recommendations do not apply to lung cancer screening, patients with immunosuppression, o r patients with known primary cancer. Note Newly detected indeterminate nodule in persons 35 years of age or older. Persons under the age of 35 should not receive follow-up unless there is a known primary cancer. Note Perifissural Nodule is a fissure-attached, homogeneous, solid nodule that has smooth margins an d an oval, lentiform, or triangular shape. They represent about 20% of nodules detected in lung cance r screening, are invariably benign, and do not require follow-up. Nodules 10 mm or larger (or those w ith suspicious features) will continue to be managed based on the size criteria. - Low Risk Patient = minimal or absent history of smoking and of other known risk factors. - High Risk Patient = history of smoking or of other known risk factors. Nodule dimensions are average of long and short axes, rounded to the nearest millimeter. Based on 2017 Fleischner Society Guidelines found in Radiology 2017 284:228-243. https://doi.org/10.1148/radiol.0537272952 https://www.ncbi.nlm.nih.gov/pmc/articles/WDV5440130/ Signer Name: Wally Perez MD Signed: 10/17/2020 4:36 PM Workstation Name: [id number]
[2020-10-17] MEDS ORDERED: cloNIDine TTS 0.2 MG/24 HR PATCH TD SCH (18:00)
[2020-10-17] MEDS: cefTRIAXone/NS 2 GM/100 ML 2 GM/100 ML BAG IV SCH (19:25)
[2020-10-18] MEDS: hydrALAZINE 20 MG/1 ML INJ IV PRN ×3 (01:17→13:24)
[2020-10-18] MEDS: BENZONATATE 100 MG CAP PO PRN (02:28)
[2020-10-18] MEDS: methylPREDNISolone Sod Succinate 40 MG/1 ML INJ IV SCH ×2 (05:30→13:24)
[2020-10-18] MEDS: HEPARIN 5,000 UNIT/1 ML VIAL SUB-Q SCH (09:14)
[2020-10-18] MEDS: ACETAMINOPHEN 325 MG TAB PO PRN (09:15)
[2020-10-18] MEDS: LOSARTAN 50 MG TAB PO SCH (09:15)
[2020-10-18] MEDS: FAMOTIDINE 10 MG TAB PO SCH (09:16)
[2020-10-18] MEDS: ASCORBIC ACID 500 MG TAB PO SCH (09:16)
[2020-10-18] MEDS: amLODIPine 10 MG TAB PO SCH (09:16)
[2020-10-18] MEDS: CHOLECALCIFEROL (VIT D3) 1000 UNIT (25 mcg) TAB PO SCH (09:17)
[2020-10-18] MEDS: hydroCHLOROthiazide 12.5 MG CAP PO SCH (09:17)
[2020-10-18] MEDS: AZITHROMYCIN 250 MG TAB PO SCH (09:17)
--- NOTE | 2020-10-18 10:34 | Electrocardiograph Report ---
[facility] Test Date: 2020-10-17 Test Time: 07:34:40 Pat Name: YONIS APONTE Department: Room: A356 1 Gender: F [employer] Tender: PATRICIO : 1975 Requested By: TIARA HUGGINS Order Number: [id number] Reading MD: Delano Bynum Measurements Intervals [place] Rate: 91 P: 54 NH: 101 QRS: 12 QRSD: 95 T: -61 QT: 414 QTc: 510 Interpretive Statements Sinus rhythm Left ventricular hypertrophy Nonspecific T abnormalities, diffuse leads Compared to ECG 10/16/2020 14:21:41 Left ventricular hypertrophy now present T-wave abnormality now present Electronically Signed On 10-18-2020 7:34:26 PDT by Delano Bynum
[2020-10-18] MEDS ORDERED: MORPHINE 2 MG/1 ML INJ IV NR (10:55)
--- NOTE | 2020-10-18 11:17 | Discharge Summary ---
Providers - Providers Date of Admission: 10/16/20 16:45 Attending physician: JAH CONNOLLY MD 10/17/20 11:16 Consult to Physician [CONS] Routine Comment: Consulting Provider: LIZETTE CALVIN Physician Instructions: Reason For Exam: ASTHMA EXACERBATION Primary care physician: [employer] Hospitalization Reason for admission: Shortness of breath Condition: Stable Hospital course: 45 YO Female with Obesity Hypoventilation Syndrome, HTN, Mild Intermittent Asthma presents to ED for evaluation. Patient reports "I cannot breathe". Patient states that she has experienced shortness of breath over the past 5 days with acutely worsening symptoms over the past 1 day. Patient is unable to speak in complete sentences due to shortness of breath. Patient transported to [facility] via private vehicle for further care and evaluation of the aforementioned symptoms. The patient was seen and evaluated in the emergency department. All lab and imaging studies reviewed. Patient found to have a pulse oximetry of 88% on room air which is consistent with acute hypoxemic respiratory failure. The patient was sitting forward in bedtripoding, using accessory muscles to breathe. Patient was treated with submental oxygen without significant improvement in symptoms. The patient was subsequently placed on noninvasive positive pressure ventilation with mild improvement in symptoms. Patient found to have a lactic acidosis and was also initiated on coronavirus protocol in the emergency department. No further history obtainable due to patient symptoms. No prior admission for review. All medication listed at time of admission has been reconciled. 10/17: Patient still noted with hypertensive urgency requiring further management. Will start patient on clonidine patch as she is adverse to p.o. intake. She still has some wheezing we will continue the steroid therapy at this time. We will likely discharge her on inhaled steroids and she states that she does not trust that she will take the p.o. steroids are doing Medrol Dosepak may not be a bad idea to add to her regimen and encouraged her to take. Counseling provided to her. Was still awaiting her Covid testing results. Plan has been discussed with her in detail she verbalized understanding counseling against marijuana use has been good for 15 minutes she verbalized u nderstanding 10/18: Continue supportive care, BP improved, no new shortness of breath.. CTA was negative for pulmonary embolism but showed a 7 mm noncalcified pulmonary nodule on the right I discussed this finding with the patient along with the positive Covid test. Again her oxygen saturation remains 96% on room air with ambulation. Advised on wearing mask. Again she is adverse to p.o. medications but later had a with a degree of her blood pressure elevation and her clinical diagnosis that she would definitely benefit from this. She states that the reason she is afraid of it is because she used it "pop pills". She denies any suicidal ideation at this time. But states that the use of pills make her nervous that she could go back to the habit. (1) Acute hypoxemic respiratory failure (2) Lactic acidosis (3) Obesity hypoventilation syndrome (4) Accelerated hypertension (5) 2019 novel coronavirus infection Disposition: DC-01 TO HOME OR SELFCARE Final Discharge Diagnosis (Prints w/discharge instructions): Covid19 Time spent for discharge: 32 MINS Core Measure Documentation - Palliative Care Palliative Care/ Comfort Measures: Not Applicable - Core Measures Any of the following diagnoses?: none Exam - Physical Exam Narrative exam: VITAL SIGNS: Reviewed. GENERAL: The patient appears normally developed, Vital signs as documented. HEAD: No signs of head trauma. EYES: Pupils are equal. Extraocular motions intact. EARS: Hearing grossly intact. MOUTH: Oropharynx is normal. NECK: No adenopathy, no JVD. CHEST: Chest with clear breath sounds bilaterally. No rales, or rhonchi. CARDIAC: Regular rate and rhythm. S1 and S2, without murmurs, gallops, or rubs. VASCULAR: No Edema. Peripheral pulses normal and equal in all extremities. ABDOMEN: Soft, non tender and non distended. No rebound or guarding, and no masses palpated. Bowel Sounds normal. MUSCULOSKELETAL: Good range of motion of all major joints. Extremities without clubbing, cyanosis or edema. NEUROLOGIC EXAM: Alert and oriented x 3 No focal sensory or strength deficits. Speech normal. Follows commands. PSYCHIATRIC: Mood normal. SKIN: detail exam as documented in skin assessment - Constitutional Vitals: Temp Pulse Resp BP Pulse Ox 97.7 F 120 H 20 161/92 100 10/18/20 04:26 10/18/20 05:29 10/18/20 11:12 10/18/20 05:29 10/18/20 04:25 Plan Activity: advance as tolerated, fall precautions Diet: low fat Special Instructions: record daily weights, record daily BP diary Additional Instructions: Continue social distancing from family is involved once he is mask and disinfect all devices used Follow up with: PRIMARY CARE, [Primary Care Provider] - 7 Days LIZETTE CALVIN MD [Staff Physician] - 7 Days Prescriptions: cloNIDine-TTS PATCH [Catapres-Tts 0.2mg Patch] 0.2 mg TD QWEEK #4 patch guaiFENesin DM [Guaifenesin Dm Syrup] 10 ml PO Q6HR PRN #250 ml PRN Reason: Cough Losartan/Hydrochlorothiazide [Losartan-Hctz 50-12.5 mg Tab] 1 each PO DAILY #30 Prednisone [predniSONE 10 mg (6-Day Pack, 21 Tabs)] 10 mg PO .TAPER #1 tab.ds.pk Albuterol Mdi (or & Nicu Only) [ProAir HFA Inhaler] 2 puff IH QID PRN #8.5 gram PRN Reason: Shortness Of Breath Budesonide/Formoterol Fumarate [Symbicort 160-4.5 Mcg Inhaler] 10.2 gm IH BID #1 hfa.aer.ad
[2020-10-18 13:25] VITALS: BP 170/110
--- NOTE | 2020-10-18 15:06 | Consultation ---
PULMONARY CRITICAL CARE CONSULT NOTE CONSULTING PHYSICIAN: Dr. Tye Harris REASON FOR CONSULTATION: Acute asthma exacerbation. CHIEF COMPLAINT AND HISTORY OF PRESENT ILLNESS: The patient is a 45-year-old female with a past medical history significant amongst other things for a diagnosis of obesity hypoventilation syndrome as well as mild intermittent asthma, who presented to the Emergency Room complaining of shortness of breath. It had been going on for about 5 days, but got worse on the day of presentation. She was unable to speak with complete sentences. According to the ER notes, she was hypoxemic with O2 sats of 88% on room air. She was tripoding, using accessory muscles. She also was found to have a lactic acidosis. She was treated as acute asthma exacerbation with systemic steroids and bronchodilators and admitted as a person under investigation for COVID-19. We are asked to assist with management. When I stopped by to see her, she was walking around the room, feeling much better. She was on supplemental oxygen. She states her cough was better. She denied chest pain. She denied hemoptysis. She denies any known COVID-19 contacts. She has never been intubated as a result of her asthma and really does not have frequent hospitalizations with regards to her asthma, she is unclear what her triggers are. She denies any new onset leg pain or swelling either unilaterally or bilaterally or any suggestion of a DVT or history of venous thromboembolic disorders. When asked about tobacco use/abuse, she denies any tobacco use, whatsoever. This really is as much of the history of presentation as I have. PAST MEDICAL HISTORY: She is obese. She has a history of asthma, obesity hypoventilation syndrome, hypertension. PAST SURGICAL HISTORY: She has had tubal ligations. MEDICATIONS: She was on at the time I stopped by to see were reviewed. Pertinent medications included the following: Tylenol 650 mg p.o. q. 4 hours p.r.n. mild pain or fevers, albuterol nebulizer treatments 2.5 mg q. 4 hours p.r.n. shortness of breath, amlodipine 10 mg p.o. daily, vitamin C 500 mg p.o. b.i.d., azithromycin 500 mg p.o. daily, Tessalon Perles, cough syrup, cough tablets 100 mg p.o. q. 8 hours p.r.n. cough, vitamin D3 1000 units p.o. daily, Pepcid 10 mg p.o. b.i.d., heparin 5000 units subcutaneous q. 12 hours, hydrochlorothiazide 12.5 mg p.o. daily, Rocephin 2 g IV daily, losartan 50 mg p.o. daily, Solu-Medrol 40 mg IV q. 8 hours, Zofran 4 mg IV q. 8 hours p.r.n. nausea and vomiting. ALLERGIES: No known drug allergies. DIET: Obese lady. Denies acute weight loss or gain in the preceding few weeks to months. FAMILY AND SOCIAL HISTORY: Lives in the community. Denies alcohol, tobacco, or illicit drug use or abuse. There is a family history of diabetes and hypertension. REVIEW OF SYSTEMS: No loss of consciousness. No new onset focal weakness. No new onset seizures. She denies gross hematochezia or melena. She denies gross hematuria or dysuria. She admitted to wheezing. She denies polydipsia, polyuria. Denies heat or cold intolerance. Complete 13-system review of system was obtained. Pertinent positives and/or negatives as in body of history above, otherwise they are noncontributory. PHYSICAL EXAMINATION: VITAL SIGNS: At presentation in the Emergency Room, she was afebrile, temperature 98.3 degrees Fahrenheit with a pulse of 109, respiratory rate was 38, blood pressure 184/121, O2 sats 100%, inspired oxygen concentration at that time was not recorded. When I stopped by to see her, O2 sats were 98% at that time on 2 liters nasal cannula. GENERAL: She is a middle-aged obese female, normocephalic, atraumatic, talking to me in full sentences at the time of my evaluation without significantly increased respiratory effort at rest. HEAD, EYES, EARS, NOSE, AND THROAT: Anicteric. No conjunctival erythema. Oropharynx was moist. No gross jugular venous distention. Mallampati #3 oropharynx. No thyromegaly. NECK: Grossly, there were no palpable lymph nodes in the supraclavicular or submandibular lymph node chains. LUNGS: Auscultation of both lung post significant for diminished bilateral breath sounds, slightly prolonged expiratory phase; however, clear. No wheezing. HEART: Heart sounds 1 and 2 are heard. They were regular in rate and rhythm at the time of my evaluation without overt rubs or murmurs. ABDOMEN: Soft, full, bowel sounds are positive, nontender, no palpable hepatosplenomegaly. EXTREMITIES: Without overt digital clubbing, no cyanosis, no pedal edema. Pedal pulses are 2+ bilaterally. NEUROLOGIC: Pupils were equal, round, about 4 mm, reactive to light. Extraocular muscle movements were intact. She moves all 4 extremities spontaneously. PSYCHIATRIC: Her mood was normal. Affect was appropriate. She had intact judgment and insight. SKIN: Normal turgor in the areas examined without overt cellulitis or rash. Please see the wound care nurse's notes for full description of her skin. LABORATORY DATA: From my review, admission white cell count 4300, hemoglobin 13.3, hematocrit 39.1, platelet count was 347. No manual differential. D-dimer was slightly elevated at 494. Arterial blood gas at presentation showed a pH of 7.51, pCO2 of 26, pO2 of 185 that was on 35% FiO2. Serum sodium 142, potassium 3.5, chloride 103, bicarbonate 21, BUN 8, creatinine 0.9, glucose was 97. Lactic acid level was 4.0 at presentation. Urinalysis was negative for nitrites and leukocyte esterase. Urine drug screen was positive for THC. Serum potassium has been corrected. Today, white count is now 6000. Two sets of blood cultures, no growth to date. Chest x-ray was done. I have reviewed the imaging as well as the radiologist's interpretation. I do agree apart from evidence of hyperinflation with mild flattening of the right hemidiaphragm. There is no acute process, borderline cardiomegaly at worst. She also had a CT angiogram of her chest. I have reviewed it. However, very poor contrast phase timing, difficult to really see anything, no large central pulmonary emboli that I can see. I am unable to pull up the lung windows and I do not have a report. ASSESSMENT: 1. Acute hypoxemic respiratory failure at presentation. 2. Acute asthma exacerbation. 3. History of obesity hypoventilation syndrome. 4. Obesity. 5. Hypertension, poorly controlled. 6. Mild metabolic acidosis at presentation. 7. Mild hypokalemia. 8. PUI COVID-19 PLAN: Her lactic acid level has normalized. I really do not know that we need to continue complete anti-infective therapy. I do not see any obvious pneumonia on a chest x-ray. Unfortunately, I am unable to pull out the lung windows on the CT angio. I do not see any large central pulmonary emboli. A procalcitonin level will be of benefit in helping make decisions on extended antibiotic therapy. Oxygen will be weaned to keep sats greater than or equal to about 92%. Aspiration precautions will be maintained. I will begin to taper the systemic steroids. Consideration should be given for the addition of a long-acting bronchodilators and inhaled corticosteroids if her symptoms to resume. She is appropriately on GI and DVT prophylaxis. Coronavirus PCR testing has been ordered according to the RN. She will be kept in isolation according to the PUI COVID protocol in the hospital. Flu and pneumonia vaccination will be addressed per protocol. Thank you very much for the consult. She will benefit from lower extremity Dopplers just to complete the venous thromboembolic disorder workup, but I will wait on the full read of the CT angio per radiologist. We will follow along and make further recommendations as picture progresses/becomes clearer. JOB# [id number] LYRIC/LETICIA ONEAL
--- NOTE | 2020-10-18 15:59 | Progress Note ---
Assessment and Plan Acute hypoxemic respiratory failure at presentation. Acute asthma exacerbation. History of obesity hypoventilation syndrome. Obesity. Hypertension, poorly controlled. Mild metabolic acidosis at presentation. Mild hypokalemia. PUI COVID-19 - follow COVID-19 result - prn supplemental oxygen to keep O2 sats > 90% - prn bronchodilators (LANNY) with pulm hygiene per RT - taper systemic steroids - avoid nephrotoxins, renally dose all medications - mobility protocols to prevent pressure ulcers - PT/OT as tolerated - accuchecks with glycemic control per SSI for target blood glucose < 180 mg/dL - continued tobacco abstinence strongly counseled at the bedside - home oxygen evaluation at discharge - GI & VTE prophylaxis - Flu & pneumovax per protocol - Pulmonary out patient follow up for PFTs and optimization of respiratory status - continue other care per attending / other consultants - prn analgesia per pain score ... re-evaluate in am & prn Subjective Date of service: 10/18/20 Principal diagnosis: Ac. hypoxemic resp failure; AE-Asthma; OHS; HTN; PUI COVID- 19 Interval history: Patient is seen today for: Acute hypoxemic respiratory failure at presentation; AE-Asthma; OHS; HTN; PUI COVID-19 Seen and examined at bedside; 24hour events reviewed; nursing and respiratory care staff consulted; no adverse overnight events reported to me; resting peacefully in bed; off supplemental oxygen; denies chest pain or N/V/F/C Objective Vital Signs - 12hr 10/18/20 10/18/20 10/18/20 04:25 04:26 04:33 Temperature 97.9 F 97.7 F Pulse Rate 120 H Respiratory 20 Rate Blood Pressure 161/92 Blood Pressure 161/92 [Left] O2 Sat by Pulse 100 Oximetry 10/18/20 10/18/20 10/18/20 05:29 09:15 09:30 Temperature Pulse Rate 120 H Respiratory 20 Rate Blood Pressure 161/92 Blood Pressure [Left] O2 Sat by Pulse 99 Oximetry 10/18/20 10/18/20 10/18/20 10:00 11:12 12:30 Temperature 98.1 F Pulse Rate 88 Respiratory 20 20 18 Rate Blood Pressure 172/110 Blood Pressure [Left] O2 Sat by Pulse 100 99 Oximetry 10/18/20 13:24 Temperature Pulse Rate 87 Respiratory Rate Blood Pressure 170/110 Blood Pressure [Left] O2 Sat by Pulse Oximetry Constitutional: no acute distress Eyes: non-icteric ENT: oropharynx moist Neck: supple Effort: normal Ascultation: Bilateral: clear Percussion: Bilateral: not dull Cardiovascular: regular rate and rhythm Gastrointestinal: normoactive bowel sounds, soft, non-tender, non-distended Integumentary: normal Extremities: no cyanosis, no edema, pulses normal, no ischemia or petechiae Neurologic: non-focal exam, pupils equal and round, CN II-XII normal, motor strength normal and Psychiatric: mood appropriate, affect normal CBC and BMP: 10/17/20 06:33 10/17/20 06:33 ABG, PT/INR, D-dimer: ABG ABG pH 7.505 pH Units (7.350-7.450) H 10/16/20 16:07 ABG pCO2 25.6 mm Hg 10/16/20 16:07 ABG pO2 184.8 mm Hg (80.0-90.0) H 10/16/20 16:07 ABG O2 Saturation 99.2 % (95.0-99.0) H 10/16/20 16:07 PT/INR, D-dimer PT 12.3 Sec. (12.2-14.9) 10/16/20 14:56 INR 0.93 (0.87-1.13) 10/16/20 14:56 D-Dimer 494.04 ng/mlDDU (0-234) H 10/16/20 14:56 Abnormal lab findings: Abnormal Labs 10/16/20 10/16/20 10/16/20 14:42 14:56 14:56 WBC 4.3 L MCHC Lymph % (Auto) 43.2 H [place] % (Auto) 9.0 H Lymph # (Auto) Seg Neutrophils % 37.0 L Seg Neutrophils # 1.6 L APTT 23.9 L D-Dimer 494.04 H ABG pH ABG pO2 ABG HCO3 ABG O2 Saturation Potassium Carbon Dioxide Glucose POC Glucose Lactic Acid Total Creatine Kinase 386 H Urine pH Coronavirus (PCR) 10/16/20 10/16/20 10/16/20 14:56 14:56 15:41 WBC MCHC Lymph % (Auto) [place] % (Auto) Lymph # (Auto) Seg Neutrophils % Seg Neutrophils # APTT D-Dimer ABG pH ABG pO2 ABG HCO3 ABG O2 Saturation Potassium 3.5 L Carbon Dioxide 21 L Glucose POC Glucose Lactic Acid 4.00 H* Total Creatine Kinase Urine pH 8.0 H Coronavirus (PCR) 10/16/20 10/16/20 10/17/20 16:07 16:08 06:33 WBC MCHC 35 H Lymph % (Auto) 12.1 L [place] % (Auto) Lymph # (Auto) 0.7 L Seg Neutrophils % 85.8 H Seg Neutrophils # APTT D-Dimer ABG pH 7.505 H ABG pO2 184.8 H ABG HCO3 19.7 L ABG O2 Saturation 99.2 H Potassium Carbon Dioxide Glucose POC Glucose Lactic Acid 2.20 H* Total Creatine Kinase Urine pH Coronavirus (PCR) 10/17/20 10/17/20 10/17/20 06:33 07:54 08:40 WBC MCHC Lymph % (Auto) [place] % (Auto) Lymph # (Auto) Seg Neutrophils % Seg Neutrophils # APTT D-Dimer ABG pH ABG pO2 ABG HCO3 ABG O2 Saturation Potassium Carbon Dioxide Glucose 119 H POC Glucose 126 H Lactic Acid Total Creatine Kinase Urine pH Coronavirus (PCR) Positive A 10/17/20 10/17/20 11:41 16:00 WBC MCHC Lymph % (Auto) [place] % (Auto) Lymph # (Auto) Seg Neutrophils % Seg Neutrophils # APTT D-Dimer ABG pH ABG pO2 ABG HCO3 ABG O2 Saturation Potassium Carbon Dioxide Glucose POC Glucose 109 H 131 H Lactic Acid Total Creatine Kinase Urine pH Coronavirus (PCR) Chest x-ray: other (none today) Allied health notes reviewed: nursing
== END 2020-10-18 16:00 | disposition home or self-care (01) | DRG 177 ==
LOC: ED 13:44 → 3A 16:45
PROVIDERS: ADMIT Internal Medicine; ATTEND Internal Medicine
PROC: 5A09357 Assistance with Respiratory Ventilation, Less than 24 Consecutive Hours, Continuous Positive Airway Pressure (ICD-10-PCS; principal; 2020-10-16)
DX: U07.1 COVID-19 (principal); J96.01 Acute respiratory failure with hypoxia; E87.2 Acidosis; J45.901 Unspecified asthma with (acute) exacerbation; E66.2 Morbid (severe) obesity with alveolar hypoventilation; J45.52 Severe persistent asthma with status asthmaticus; I10 Essential (primary) hypertension; E87.6 Hypokalemia; F12.90 Cannabis use, unspecified, uncomplicated; Z68.39 Body mass index [BMI] 39.0-39.9, adult; Z82.49 Family history of ischemic heart disease and other diseases of the circulatory system; Z83.3 Family history of diabetes mellitus; Z98.51 Tubal ligation status; Z79.899 Other long term (current) drug therapy
CPT/HCPCS: 36415; 71045; 71275; 80048; 80307; 81001; 81025; 82140; 82550; 82553; 82803; 82962; 83735; 84484; 85025; 85379; 85610; 85730; 86850; 86900; 86901; 87040; 93005; 94640; 94644; 94760; 96365; 96375; G0378; J0360; J0456; J0696; J1644; J2060; J2270; J2920; J2930; J3475; Q9967; U0003